=== PATIENT | male | born 1985 | race Two or more races ===

== ENCOUNTER → 2020-11-12 11:12 | Outpatient (CLI) | payer OTHER, SELFPAY ==
[2020-11-12 11:44] LABS: Basophils # 0.1 K/mm3 (0-0.2); Basophils % 0.9 % (0.1-2.0); Eosinophils # 0.1 K/mm3 (0.0-0.4); Eosinophils % 2.4 % (0.1-12.0); Hematocrit 49.1 % (42.0-52.0); Hemoglobin 15.4 g/dL (14.1-18.0); Lymphocytes # 1.9 K/mm3 (0.7-4.5); Lymphocytes % 32.3 % (10-50); Mean Corpuscular HGB Conc 31.3 g/dL (31.8-35.4); Mean Corpuscular Hemoglobin 30.1 pg (27.0-31.2); Mean Corpuscular Volume 96.2 fl (80-94); Mean Platelet Volume 9.5 fl (7.4-10.4); Monocytes # 0.4 K/mm3 (0.1-1.0); Monocytes % 6.9 % (1.7-9.3); Neutrophils # 3.4 K/mm3 (1.8-7.8); Neutrophils % 57.5 % (37.0-80.0); Platelet Count 247 K/mm3 (142-424); Red Blood Count 5.11 M/mm3 (4.60-6.20); White Blood Count 5.8 K/mm3 (4.8-10.8)
[2020-11-12 13:05] LABS: Chloride 105 mmol/L (98-107)
[2020-11-12 13:06] LABS: Potassium 4.3 mmoL/L (3.5-5.1); Sodium 143 mmol/L (136-145)
[2020-11-12 13:09] LABS: Anion Gap 15.3 mEq/L (5-15); Blood Urea Nitrogen 13 mg/dl (9-20); Calcium 9.2 mg/dl (8.4-10.2); Carbon Dioxide 27 mmol/L (22.0-30.0); Estimated Glomerular Filt Rate 96 ml/min (>60); GFR (African American) 116 ML/MIN (>60); Glucose 94 mg/dl (74-100)
[2020-11-14 08:13] LABS: Rubella Antibodies, IgG 7.06 index (Immune >0.99)
[2020-11-14 09:19] LABS: Hep B Surface Ab, Qual Reactive (.)
[2020-11-14 16:27] LABS: Varicella Zoster IgG >4000 index (Immune >165)
[2020-11-17 00:07] LABS: Tetanus Antitoxoid IgG Ab 0.94 IU/mL (<0.10)
[2020-11-18 00:07] LABS: QuantiFERON-TB Gold Plus Negative (Negative)
== END ==
PROVIDERS: Visit Provider Nurse Practitioner Family
DX: Z00.00 Encounter for general adult medical examination without abnormal findings (principal); Z01.84 Encounter for antibody response examination
CPT/HCPCS: 36415; 80048; 85025; 86480; 86706; 86735; 86762; 86765; 86774; 86787

== ENCOUNTER → 2021-06-01 16:33 | Outpatient (CLI) | payer OTHER, SELFPAY ==
[2021-06-01 18:23] LABS: Basophils # 0.1 K/mm3 (0-0.2); Basophils % 1.1 % (0.1-2.0); Eosinophils # 0.1 K/mm3 (0.0-0.4); Eosinophils % 1.6 % (0.1-12.0); Hemoglobin 15.6 g/dL (14.1-18.0); Lymphocytes % 31.8 % (10-50); Mean Corpuscular HGB Conc 32.6 g/dL (31.8-35.4); Mean Corpuscular Volume 95.1 fl (80-94); Mean Platelet Volume 10.7 fl (7.4-10.4); Monocytes # 0.4 K/mm3 (0.1-1.0); Monocytes % 6.5 % (1.7-9.3); Neutrophils # 3.6 K/mm3 (1.8-7.8); Platelet Count 252 K/mm3 (142-424); Red Blood Count 5.04 M/mm3 (4.60-6.20); Red Cell Distribution Width 13.3 % (11.5-17.5); White Blood Count 6.1 K/mm3 (4.8-10.8)
[2021-06-01 18:47] LABS: Alanine Aminotransferase 50 U/L (12-78); Albumin Level 4.9 g/dl (3.5-5.0); Albumin/Globulin Ratio 1.5 (1.1-1.8); Alkaline Phosphatase 68 U/L (38-126); Anion Gap 14.4 mEq/L (5-15); Aspartate Amino Transferase 41 U/L (17-59); Blood Urea Nitrogen 16 mg/dl (9-20); Calcium 9.2 mg/dl (8.4-10.2); Carbon Dioxide 26 mmol/L (22.0-30.0); Chloride 105 mmol/L (98-107); Cholesterol 193 mg/dl (140-200); Estimated Glomerular Filt Rate 110 ml/min (>60); GFR (African American) 133 ML/MIN (>60); Globulin 3.2 g/dL (1.3-3.2); Glucose 90 mg/dl (74-100); HDL Cholesterol 48 mg/dl (40-60); Potassium 4.4 mmoL/L (3.5-5.1); Sodium 141 mmol/L (136-145); Total Protein,Serum 8.1 g/dl (6.3-8.2); Triglycerides 113 mg/dl (30-150); VLDL Cholesterol 23 mg/dL (0-40)
[2021-06-01 18:58] LABS: Direct LDL Cholesterol 107.01 mg/dL (100-129)
[2021-06-01 19:03] LABS: 25-OH Vitamin D, Total 16.3 ng/mL (30-100)
[2021-06-01 19:04] LABS: T4 (Thyroxine) 9.3 ug/dl (5.53-11.0)
[2021-06-01 19:18] LABS: Thyroid Stimulating Hormone 1.13 uIU/mL (0.465-4.68)
[2021-06-03 22:08] LABS: Neisseria gonorrhoeae, NAA Negative (Negative)
== END ==
PROVIDERS: Visit Provider Nurse Practitioner Family
DX: Z00.00 Encounter for general adult medical examination without abnormal findings (principal); R53.82 Chronic fatigue, unspecified; E55.9 Vitamin D deficiency, unspecified; E66.3 Overweight; Z68.30 Body mass index [BMI] 30.0-30.9, adult
CPT/HCPCS: 80053; 80061; 82306; 84436; 84443; 85025; 87491; 87591